=== PATIENT | female | born 2000 | race Caucasian/White ===

== ENCOUNTER 2020-06-22 18:42 | Emergency (ER) | payer OTHER ==
[~2020-06-22] VITALS: Ht 162.6 cm; Wt 65.8 kg
[2020-06-22] MEDS ORDERED: BIRTH CONTROL (20:21)
[2020-06-22 22:13] LABS: URINE BILIRUBIN NEGATIVE (Negative); URINE BLOOD 3+ (Negative); URINE CLARITY CLEAR; URINE COLOR YELLOW; URINE GLUCOSE-RANDOM NEGATIVE (Negative); URINE KETONES NEGATIVE (Negative); URINE LEUKOCYTES-REFLEX NEGATIVE (Negative); URINE NITRITE-REFLEX NEGATIVE (Negative); URINE PROTEIN NEGATIVE (Negative); URINE UROBILINOGEN 0.2 E.U./dl (0.2-1.0)
[2020-06-22 22:13] LABS: HEMATOCRIT 42.1 % (37.0-47.0); MCH 27.8 pg (26.0-34.0); MCHC 33.2 g/dL (28.0-37.0); MCV 83.7 fL (80.0-100.0); MPV 7.6 fl. (7.2-11.1); RBC 5.03 mil/uL (4.20-5.00); RDW-CV 12.7 % (10.5-14.5); WBC 9.4 thou/uL (4.0-11.0)
[2020-06-22 22:19] LABS: AMP/METHAMP Negative (Negative); BARBITURATES Negative (Negative); BENZODIAZEPINES Negative (Negative); COCAINE Negative (Negative); METHADONE Negative (Negative); OPIATES Negative (Negative); PCP Negative (Negative); THC Negative (Negative)
[2020-06-22 22:38] LABS: ALBUMIN 3.7 g/dL (3.4-5.0); CALCIUM 9.4 mg/dL (8.5-10.1); CREATININE 0.9 mg/dL (0.6-1.3); POTASSIUM 4.1 mmol/L (3.5-5.1); TOTAL BILIRUBIN 0.3 mg/dL (<0.1-1.0); TOTAL PROTEIN 8.5 g/dL (6.4-8.2)
[2020-06-22 22:58] LABS: CASTS None Seen /LPF (None Seen); SQUAMOUS >10 Many /LPF (0-3); URINE RBC 0-2 Rare /HPF (0-2); URINE WBC-REFLEX 0-5 Rare /HPF (0-5)
[2020-06-22 22:59] LABS: BACTERIA-REFLEX 1-9 Few /HPF (None Seen); CRYSTALS None Seen /LPF (None Seen)
[2020-06-22] MEDS ORDERED: CARAFATE 1 GM TA1 GM PO (23:11)
[2020-06-22] MEDS ORDERED: CYCLOBENZAPRINE5 MG PO (23:11)
[2020-06-22] MEDS ORDERED: PEPCID20 MG PO (23:11)
[2020-06-22 23:38] VITALS: BP 130/70
== END 2020-06-22 23:38 | disposition home or self-care (01) ==
LOC: M.ERS 18:42
PROVIDERS: Personal Emergency Response Attendant
DX: K21.9 Gastro-esophageal reflux disease without esophagitis (principal); M79.18 Myalgia, other site; M79.661 Pain in right lower leg; M79.662 Pain in left lower leg